=== PATIENT | female | born 1955 | race Caucasian/White ===

== ENCOUNTER 2019-08-10 17:49 | Emergency (ER) | payer SELFPAY ==
[~2019-08-10 17:49] MED LIST: Iopamidol-370 76% 500 ML 1 ML ONE
[2019-08-10 18:27] LABS: #Basophils 0.1 thou/uL (0.0-0.2); #Eosinphils 0.1 thou/uL (0.0-0.7); #Lymphocytes 2.2 thou/uL (1.20-3.40); #Monocytes 0.9 thou/uL (0.11-0.59); #Neutrophils 9.1 thou/uL (1.40-6.50); %Basophils 0.6 % (0.0-1.0); %Eosinophils 1.1 % (0.0-10.0); %Monocytes 6.9 % (0.0-10.0); %Neutrophils 73.5 % (42.0-75.0); Hemoglobin 14.5 g/dL (12.0-16.0); Mean Corpuscular HGB CONC 33.6 g/dL (32.0-36.0); Mean Corpuscular Hemoglobin 32.8 pg (27.0-31.0); Mean Corpuscular Volume 97.4 fL (78.0-98.0); Mean Platelet Volume 7.3 fL (7.4-10.4); Platelet Count 365 thou/uL (130-400); RBC Distribution Width 13.6 % (11.5-14.5); Red Blood Cell (RBC) Count 4.43 mill/uL (4.20-5.40); White Blood Cell (WBC) Count 12.4 thou/uL (4.8-10.8)
--- NOTE | 2019-08-10 18:33 | RAD ---
Portable chest: HISTORY: Wheezing COMPARISON: 06/07/2015 FINDINGS:Patchy infiltrate and/or atelectasis seen in both lung bases. I cannot exclude small effusio ns as both CP angles are blunted. Upper lung zones are clear. IMPRESSION:Bibasilar atelectasis and/or infiltrates and evidence of small effusions.
--- NOTE | 2019-08-10 19:15 | ULT ---
EXAM: Left lower extremity venous duplex: Deep veins evaluated with color Doppler, spectral analysis, and compression. INDICATIONS: Left lower extremity pain and edema. FINDINGS: Deep veins interrogated include common femoral vein, femoral vein, popliteal vein, and post erior tibial vein. These veins show normal compression and blood flow. No evidence of DVT. IMPRESSION: Negative Left venous duplex exam.
[2019-08-10 20:34] LABS: ALT (SGPT) 10 U/L (8-55); AST (SGOT) 14 U/L (5-34); Albumin 4.3 g/dL (3.4-4.8); Alkaline Phosphatase 94 U/L (40-110); Anion Gap 12 mmol/L (10-20); BUN (Urea Nitrogen) 10 mg/dL (9.8-20.1); Bilirubin, Total 0.3 mg/dL (0.2-1.2); Calc. Creatinine Clearance 0 mL/min (70-130); Calcium 9.5 mg/dL (7.8-10.44); Carbon Dioxide 32 mmol/L (23-31); Chloride 101 mmol/L (98-107); Estimated GFR-MDRD Greater than 90; Glucose 95 mg/dL (80-115); Potassium 4.7 mmol/L (3.5-5.1); Protein, Total 7.3 g/dL (6.0-8.3); Sodium 140 mmol/L (136-145)
--- NOTE | 2019-08-10 21:12 | CT ---
CTA chest with contrast: Multiple axial tomograms obtained through the chest following a pulmonary angiogram protocol with mul tiplanar reconstruction and 3-D postprocessing. INDICATIONS: Dyspnea and chest pain. Assess for pulmonary embolus. COMPARISON: None FINDINGS: Pulmonary arteries show adequate opacification. No evidence of pulmonary embolus identified. Thoracic aorta is unremarkable. No evidence of dissection. Mediastinum appears unremarkable. No adenopathy. Chronic lung parenchymal changes. Patchy atelectasis and/or infiltrate in the right lung base. Ground glass nodular opacity peripheral right upper lobe measuring 1.0 cm. Images through the upper abdomen appear unremarkable. Soft tissues of the thorax appear unremarkable. Osseous structures of the thorax appear unremarkable. IMPRESSION: 1. No evidence of pulmonary embolus 2. Right lower lobe atelectasis and/or infiltrate 3. Groundglass nodular opacity right upper lobe. Follow-up chest CT in 6 months recommended.
== END 2019-08-10 22:09 | disposition home or self-care (01) ==
LOC: ERS 17:49
DX: L03.116 Cellulitis of left lower limb (principal); I71.4 Abdominal aortic aneurysm, without rupture; M19.90 Unspecified osteoarthritis, unspecified site; F17.210 Nicotine dependence, cigarettes, uncomplicated; J45.909 Unspecified asthma, uncomplicated; Z79.891 Long term (current) use of opiate analgesic; Z79.899 Other long term (current) drug therapy
CPT/HCPCS: 36415; 71045; 71275; 80053; 82550; 85025; 85379; 93005; Q9967

== ENCOUNTER 2021-08-31 12:17 | Emergency (ER) | payer SELFPAY ==
[2021-08-31 13:19] LABS: #Lymphocytes 0.9 thou/uL (1.20-3.40); #Monocytes 0.5 thou/uL (0.11-0.59); #Neutrophils 9.8 thou/uL (1.40-6.50); %Basophils 0.3 % (0.0-1.0); %Eosinophils 0.2 % (0.0-10.0); %Lymphocytes 8.3 % (21.0-51.0); %Monocytes 4.7 % (0.0-10.0); %Neutrophils 86.5 % (42.0-75.0); Hemoglobin 15.1 g/dL (12.0-16.0); Mean Corpuscular HGB CONC 31.1 g/dL (32.0-36.0); Mean Corpuscular Hemoglobin 30.5 pg (27.0-31.0); Mean Corpuscular Volume 97.9 fL (78.0-98.0); Mean Platelet Volume 8.1 fL (7.4-10.4); Platelet Count 283 thou/uL (130-400); RBC Distribution Width 12.9 % (11.5-14.5); Red Blood Cell (RBC) Count 4.97 mill/uL (4.20-5.40); White Blood Cell (WBC) Count 11.3 thou/uL (4.8-10.8)
[2021-08-31 14:49] LABS: ALT (SGPT) 15 U/L (8-55); AST (SGOT) 16 U/L (5-34); Albumin 4.2 g/dL (3.4-4.8); Alkaline Phosphatase 100 U/L (40-110); Anion Gap 15 mmol/L (10-20); BUN (Urea Nitrogen) 16 mg/dL (9.8-20.1); Bilirubin, Total 0.3 mg/dL (0.2-1.2); Calc. Creatinine Clearance 0 mL/min (70-130); Calcium 9.5 mg/dL (7.8-10.44); Carbon Dioxide 33 mmol/L (23-31); Chloride 93 mmol/L (98-107); Globulin 3.9 g/dL (2.4-3.5); Glucose 109 mg/dL (80-115); Lipase 9 U/L (8-78); Potassium 4.8 mmol/L (3.5-5.1); Protein, Total 8.1 g/dL (5.8-8.1); Sodium 136 mmol/L (136-145)
[2021-08-31 14:49] LABS: SARS-CoV-2 NAA Rapid Test Not Detected (NotDetected)
[2021-08-31 15:00] LABS: Bilirubin Negative (Negative); Blood, Urine Negative (Negative); Clarity Clear (Clear); Glucose, Urine (Dipstick) Normal (Negative); Ketone, Urine 20 mg/dL (Negative); Leukocyte Negative Leu/uL (Negative); Nitrite Negative (Negative); Protein, Urine (Dipstick) 20 mg/dL (Neg-Trace); Specific Gravity, Urine 1.026 (1.002-1.036); Urobilinogen Normal mg/dL (Less than 2); pH, Urine 5.5 (5.0-9.0)
== END 2021-08-31 16:00 | disposition home or self-care (01) ==
LOC: ERS 12:17
DX: R53.1 Weakness (principal); E86.0 Dehydration; M19.90 Unspecified osteoarthritis, unspecified site; J45.909 Unspecified asthma, uncomplicated; F17.210 Nicotine dependence, cigarettes, uncomplicated; Z20.822 Contact with and (suspected) exposure to COVID-19; Z79.899 Other long term (current) drug therapy
CPT/HCPCS: 36415; 71045; 80053; 81003; 83690; 83880; 84484; 85025; 93005; U0002